=== PATIENT | female | born 1970 | race Caucasian/White ===

== ENCOUNTER 2021-05-25 11:49 | Emergency (ER) | payer BC, OTHER ==
[2021-05-25 12:32] VITALS: BP 141/93; PULSE 88
[2021-05-25] MEDS ORDERED: Sodium Chloride 0.9% 10 ML Syringe FLUSH PRN (13:15)
--- NOTE | 2021-05-25 13:28 | EDM.PDOC ---
ED HPI GENERAL MEDICAL PROBLEM - General Chief Complaint: Respiratory Problem Stated Complaint: COVID+ SOB Time Seen by Provider: 05/25/21 13:13 Source of Information: Reports: Patient History Limitations: Reports: No Limitations - History of Present Illness INITIAL COMMENTS - FREE TEXT/NARRATIVE: 50-year-old female presents the emergency department with complaints of low O2 saturations due to Covid. Patient states that she was diagnosed with Covid 8 days ago however has symptoms for 9 days. She states she did receive monoclonal antibodies 2 days ago. She has been checking her oxygen saturations at home and states they have been 88 to 93% on room air. Patient states she is otherwise healthy. She does not smoke. She does not take any prescription medications and does not see a primary health care provider. States that she does have a decreased appetite, cough, and shortness of breath. Patient's O2 saturations 93 to 96% on room air at the time of triage. Patient did not receive her Covid vaccine. - Related Data Allergies Allergy/AdvReac Type Severity Reaction Status Date / Time No Known Allergies Allergy Verified 05/25/21 12:32 Home Meds: Home Meds . [No Known Home Meds] 04/06/15 [History] Past Medical History Other [employer] History: waiting to get breast biopsy done for spots that were seen on mammogram Endocrine/Metabolic History: Reports: Obesity/BMI 30+ - Infectious Disease History Infectious Disease History: Reports: Novel Coronavirus - Past Surgical History HEENT Surgical History: Reports: LASIK, Tonsillectomy Social & Family History - Tobacco Use Tobacco Use Status *Q: Never Tobacco User - Caffeine Use Caffeine Use: Reports: Coffee - Recreational Drug Use Recreational Drug Use: No ED ROS GENERAL - Review of Systems Review Of Systems: Comprehensive ROS is negative, except as noted in HPI. ED EXAM, GENERAL - Physical Exam Exam: See Below Exam Limited By: No Limitations General Appearance: Alert, WD/WN, No Apparent Distress Ears: Normal External Exam, Hearing Grossly Normal Nose: Normal Inspection Throat/Mouth: Normal Inspection, Normal Lips, Normal Voice, No Airway Compromise Head: Atraumatic Neck: Normal Inspection, Supple Respiratory/Chest: No Respiratory Distress, Lungs Clear, Normal Breath Sounds, No Accessory Muscle Use, Chest Non-Tender Cardiovascular: Normal Peripheral Pulses, Regular Rate, Rhythm, No Edema, No Murmur Peripheral Pulses: 2+: Radial (L), Radial (R) GI/Abdominal: Normal Bowel Sounds, Soft, Non-Tender, No Distention (Female) Exam: Deferred Rectal (Female) Exam: Deferred Back Exam: Normal Inspection Extremities: Normal Inspection Neurological: Alert, Oriented, Normal Cognition Psychiatric: Normal Affect, Normal Mood Skin Exam: Warm, Dry, Intact, Normal Color, No Rash Lymphatic: No Adenopathy Course - Vital Signs Text/Narrative:: 50-year-old female presents the emergency department as stated above. Patient is hemodynamically stable at the time of my exam. Physical exam is essentially unremarkable. Will obtain of chest x-ray and lab studies to include a CBC, CMP, D-dimer, magnesium and a C-reactive protein. Last Recorded V/S: Last Vital Signs Temp 96.9 F 05/25/21 12:29 Pulse 88 05/25/21 12:29 Resp 16 05/25/21 12:29 BP 141/93 H 05/25/21 12:29 Pulse Ox 96 05/25/21 12:29 - Orders/Labs/Meds Orders: Active Orders 24 hr Category Date Time Status CBC WITH AUTO DIFF [HEME] Stat Lab 05/25/21 13:35 Results Sodium Chloride 0.9% [Saline Flush] Med 05/25/21 13:15 Active 10 ml FLUSH ASDIRECTED PRN Saline Lock Insert [OM.PC] Stat Oth 05/25/21 13:15 Ordered Medication Orders Sodium Chloride (Sodium Chloride 0.9% 10 Ml Syringe) 10 ml FLUSH ASDIRECTED PRN PRN Reason: Keep Vein Open Labs: Laboratory Tests 05/25/21 05/25/21 05/25/21 Range/Units 13:35 13:35 13:35 WBC 5.26 (3.98-10.04) K/mm3 RBC 4.77 (3.98-5.22) M/mm3 Hgb 14.1 (11.2-15.7) gm/dl Hct 42.3 (34.1-44.9) % MCV 88.7 (79.4-94.8) fl MCH 29.6 (25.6-32.2) pg MCHC 33.3 (32.2-35.5) g/dl RDW Std Deviation 43.7 (36.4-46.3) fL Plt Count 227 D (182-369) K/mm3 MPV 10.0 (9.4-12.3) fl Neut % (Auto) 57.1 (34.0-71.1) % Lymph % (Auto) 31.6 (19.3-51.7) % [place] % (Auto) 9.7 (4.7-12.5) % Eos % (Auto) 0.6 L (0.7-5.8) Baso % (Auto) 0.6 (0.1-1.2) % Neut # (Auto) 3.01 (1.56-6.13) K/mm3 Lymph # (Auto) 1.66 (1.18-3.74) K/mm3 [place] # (Auto) 0.51 H (0.24-0.36) K/mm3 Eos # (Auto) 0.03 L (0.04-0.36) K/mm3 Baso # (Auto) 0.03 (0.01-0.08) K/mm3 D-Dimer, Quantitative 0.44 (0.19-0.50) mg/L Sodium 139 (136-145) mEq/L Potassium 3.9 (3.5-5.1) mEq/L Chloride 104 (98-107) mEq/L Carbon Dioxide 26 (21-32) mEq/L Anion Gap 12.9 (5-15) BUN 12 (7-18) mg/dL Creatinine 0.8 (0.55-1.02) mg/dL Est Cr Clr Drug Dosing 71.84 mL/min Estimated GFR (MDRD) > 60 (>60) mL/min BUN/Creatinine Ratio 15.0 (14-18) Glucose 97 (70-99) mg/dL Calcium 8.7 (8.5-10.1) mg/dL Magnesium 2.2 (1.8-2.4) mg/dL Total Bilirubin 0.6 (0.2-1.0) mg/dL AST 77 H (15-37) U/L ALT 145 H (14-59) U/L Alkaline Phosphatase 162 H (46-116) U/L C-Reactive Protein 4.0 H* (<1.0) mg/dL Total Protein 8.0 (6.4-8.2) g/dl Albumin 3.6 (3.4-5.0) g/dl Globulin 4.4 gm/dL Albumin/Globulin Ratio 0.8 L (1-2) Meds: Medications Generic Name Dose Route Start Last Admin Trade Name Freq PRN Reason Stop Dose Admin Sodium Chloride 10 ml 05/25/21 13:15 Sodium Chloride 0.9% 10 Ml Syringe FLUSH ASDIRECTED PRN Keep Vein Open - Re-Assessments/Exams Free Text/Narrative Re-Assessment/Exam: 05/25/21 14:27 Radiologist impression frontal view of the chest: 1. Findings compatible with mild to moderate bilateral COVID pneumonia. 05/25/21 14:29 Hematology is unremarkable, D-dimer 0.44 Chemistry is unremarkable other than a AST of 77, ALT 145, alk phos 162 and a C- reactive protein of 4.0 Patient will be discharged home. Departure - Departure Time of Disposition: 14:37 Disposition: Home, Self-Care 01 Condition: Good Clinical Impression: COVID - Discharge Information Referrals: Samantha Hager PA-C [Primary Care Provider] - Forms: ED Department Discharge Additional Instructions: You were seen in the emergency department today with low oxygen saturations at home. While in the emergency department your oxygen saturations were 93 to 96% on room air. Chest x-ray was completed as well as lab studies. Chest x-ray did show pneumonia consistent with Covid however, as discussed this is viral in origin and cannot be treated with antibiotics. Lab studies were completed and these were unremarkable. Recommend that you go home and get plenty of rest. Drink plenty of fluids. Take Tylenol or ibuprofen per label instructions for discomfort or fever. Should your condition worsen or change, do not hesitate returning to the emergency department. Sepsis Event Note (ED) - Evaluation Sepsis Screening Result: No Definite Risk - Focused Exam Vital Signs: Vital Signs Temp Pulse Resp BP Pulse Ox 05/25/21 12:29 96.9 F 88 16 141/93 H 96 - My Orders Last 24 Hours: My Active Orders 05/25/21 13:15 Sodium Chloride 0.9% [Saline Flush] 10 ml FLUSH ASDIRECTED PRN Saline Lock Insert [OM.PC] Stat 05/25/21 13:35 CBC WITH AUTO DIFF [HEME] Stat - Assessment/Plan Last 24 Hours: My Active Orders 05/25/21 13:15 Sodium Chloride 0.9% [Saline Flush] 10 ml FLUSH ASDIRECTED PRN Saline Lock Insert [OM.PC] Stat 05/25/21 13:35 CBC WITH AUTO DIFF [HEME] Stat
--- NOTE | 2021-05-25 13:54 | CR ---
Chest: Frontal view of the chest was obtained. Comparison: No prior chest imaging is available. Patchy increased density within the right upper and right lower lung is noted. Lesser density is noted within similar regions within the left upper and left lower lung. Heart size appears within normal limits. Upper mediastinum is within normal limits. No acute osseous abnormality is appreciated. Impression: 1. Findings compatible with mild to moderate bilateral COVID pneumonia. Diagnostic code #3
== END 2021-05-25 15:19 | disposition home or self-care (01) ==
LOC: JD.ED 11:49
DX: U07.1 COVID-19 (principal); E66.9 Obesity, unspecified; Z68.33 Body mass index [BMI] 33.0-33.9, adult
CPT/HCPCS: 36415; 71045; 71045-26; 80053; 83735; 85025; 85379; 86140; 99285-25

== ENCOUNTER 2023-02-15 07:27 | Day surgery (SDC) | payer BC ==
[~2023-02-15 07:27] MED LIST: Lactated Ringers 1,000 ML IV SCH; Midazolam 1 MG/ML 2 ML SDV ONE; Propofol 200 MG/20 ML SDV ONE; Sodium Chloride 0.9% 10 ML Syringe FLUSH PRN; Sodium Chloride 0.9% 10 ML Syringe FLUSH SCH; fentaNYL 100 MCG/2 ML SDV ONE
[2023-02-15] MEDS ORDERED: Lidocaine 1% 4 ML ONE (08:31)
[2023-02-15] MEDS ORDERED: Propofol 200 MG/20 ML SDV ONE (09:31)
[2023-02-15 10:39] VITALS: BP 116/74; PULSE 73
== END 2023-02-15 10:33 | disposition home or self-care (01) ==
LOC: JD.SDS 07:27
PROVIDERS: ATTEND Surgery
DX: Z12.11 Encounter for screening for malignant neoplasm of colon (principal); E66.9 Obesity, unspecified; I10 Essential (primary) hypertension; E78.00 Pure hypercholesterolemia, unspecified; Z88.6 Allergy status to analgesic agent; Z86.16 Personal history of COVID-19; Z98.890 Other specified postprocedural states; Z68.26 Body mass index [BMI] 26.0-26.9, adult
CPT/HCPCS: 45378; J2704; J3010; J7120; J2250; J3490